=== PATIENT | male | born 1975 | race Caucasian/White ===

== ENCOUNTER 2016-08-26 12:57 | Emergency (ER) | payer OTHER ==
[2016-08-26 13:03] VITALS: BP 122/84; PULSE 69; TEMP 98; BMI 23.7
[2016-08-26] MEDS ORDERED: IBUPROFEN 600 MG TABLET (FP) PO ONE (13:40)
--- NOTE | 2016-08-26 13:45 | PDOC ---
History of Present Illness - General Chief Complaint: Sore Throat Stated Complaint: THROAT PAIN Time Seen by Provider: 08/26/16 13:19 History Source: Patient Exam Limitations: No Limitations - History of Present Illness Initial Comments: 08/26/16 13:42 41 yr male with sore throat and ear pain for 3 days no fever. Pt taking claritin for seasonal allergies. no cough no diff speaking, pain with swallowing. non smoker no medical history or allergies. Severity: moderate Associated Symptoms: reports: denies symptoms. denies: cough Past History - Past Medical History Allergies/Adverse Reactions: Allergies Allergy/AdvReac Type Severity Reaction Status Date / Time No Known Allergies Allergy Verified 08/26/16 13:03 Home Medications: Ambulatory Orders Fluticasone Prop 0.05% Nasal [Flonase -] 1 - 2 spray NS DAILY #1 spray.pump 11/05 Other medical history: NONE - Psycho/Social/Smoking Cessation Hx Anxiety: No Suicidal Ideation: No Smoking History: Never smoked Hx Alcohol Use: Yes (SOCIAL) Drug/Substance Use Hx: No Substance Use Type: None Review of Systems - Review of Systems Able to Perform ROS?: Yes Is the patient limited [place] proficient: No Constitutional: No: Symptoms Reported HEENTM: Yes: Symptoms Reported, See HPI, Ear Pain, Throat Pain Respiratory: No: Symptoms reported Cardiac (ROS): No: Symptoms Reported ABD/GI: No: Symptoms Reported : No: Symptoms Reported Musculoskeletal: No: Symptoms Reported Integumentary: No: Symptoms Reported Neurological: No: Symptoms reported *Physical Exam - Vital Signs Last Vital Signs Temp Pulse Resp BP Pulse Ox 98.0 F 69 20 122/84 98 08/26/16 12:58 08/26/16 12:58 08/26/16 12:58 08/26/16 12:58 08/26/16 12:58 - Physical Exam Comments: 08/26/16 13:44 General Appearance: Yes: Nourished, Appropriately Dressed HEENT: positive: EOMI, PRISCILLA, TMs Normal, Pharynx Normal, Other (post nasal drip ) Neck: negative: Tender Respiratory/Chest: positive: Lungs Clear, Normal Breath Sounds Cardiovascular: positive: Regular Rhythm, Regular Rate Gastrointestinal/Abdominal: positive: Normal Bowel Sounds, Soft Musculoskeletal: positive: Normal Inspection Extremity: positive: Normal Capillary Refill, Normal Inspection, Normal Range of Motion Integumentary: positive: Normal Color, Dry, Warm Neurologic: positive: Fully Oriented, Alert, Normal Mood/Affect, Normal Response , Motor Strength 5/5 Medical Decision Making - Medical Decision Making 08/26/16 13:45 cc: sore throat , right ear pain afebrile non toxic well appearing male will swab for strep ibuprofen for pain *DC/Admit/Observation/Transfer Diagnosis at time of Disposition: Pharyngitis Qualifiers: Pharyngitis/tonsillitis etiology: unspecified etiology Qualified Code(s): J02.9 - Acute pharyngitis, unspecified - Discharge Dispostion Disposition: HOME Condition at time of disposition: Good - Prescriptions Prescriptions: Fluticasone Prop 0.05% Nasal [Flonase -] 1 - 2 spray NS DAILY #1 spray.pump - Referrals Referrals: Yunior Rothman MD [Primary Care Provider] - Steven Freeman MD [Staff Physician] - - Patient Instructions Additional Instructions: the rapid strep test was negative for strep bacteria you have a vial infection in the throat caused by cold viruses make sure you wash hands frequently gargle with warm sat water 4-5 times a day take ibuprofen 800mg every 6-8hrs for pain as needed use flonase nasal spray for any nasal congestion, scratchy dry throat follow with at ENT if any worsening symptoms - Post Discharge Activity
[2016-08-26] MEDS ORDERED: IBUPROFEN 400 MG TABLET (FP) PO ONE (13:49)
== END 2016-08-26 14:35 | disposition home or self-care (01) ==
LOC: JERFT 12:57
DX: J02.9 Acute pharyngitis, unspecified (principal); J30.2 Other seasonal allergic rhinitis
CPT/HCPCS: 87070; 87430; 99281-25